=== PATIENT | male | born 1980 | race Caucasian/White ===

== ENCOUNTER 2018-08-10 13:28 | Emergency (ER) | payer SELFPAY ==
--- NOTE | 2018-08-10 16:35 | ED Physician Documentation ---
PD HPI HEADACHE - Stated complaint Stated Complaint: FACE PAIN - Chief complaint Chief Complaint: Neuro - History obtained from History obtained from: Patient - History of Present Illness Timing - onset: How many days ago (several) Timing - duration: Days Timing - details: Gradual onset, Still present (worse today, with icepick feeling left supraorbital area.) Worst headache ever?: Worst headache ever? (left frontal area) Location: Front, Left Quality: Stabbing (he says it feels like ice pick above the left eye.). No: Thunderclap, Like head is exploding Associated symptoms: Nausea. No: Fever, Stiff neck, Vomiting Improved by: Dark room. No: Rest Worsened by: Light, Noise Contributing factors: No: Recent illness, Trauma Similar symptoms before: Has not had sx before (has had migraine headaches at times, with visual changes/aura and then headache. This headache feels different. Also has had the sinus pressure and nasal congestion preceding it.) Review of Systems Constitutional: denies: Fever, Chills Eyes: reports: Photophobia. denies: Loss of vision, Decreased vision Nose: reports: Congestion, Sinus pressure / pain. denies: Rhinorrhea / runny nose Throat: denies: Sore throat Respiratory: denies: Cough GI: reports: Nausea. denies: Abdominal Pain, Vomiting, Diarrhea Skin: denies: Rash, Lesions PD PAST MEDICAL HISTORY - Past Medical History Cardiovascular: None Respiratory: None Neuro: Migraines Endocrine/Autoimmune: None - Present Medications Home Medications: Ambulatory Orders Medication Instructions Recorded Confirmed Dexamethasone [Decadron] 4 mg PO DAILY #5 tablet 08/10/18 Doxycycline Hyclate 100 mg PO BID #20 capsule 08/10/18 Hydrocodone/Acetaminophen [Perkins 1 each PO Q6H PRN #25 tablet 08/10/18 5-325 Tablet] Ondansetron Odt [Zofran] 4 mg TL Q6H PRN #20 tablet 08/10/18 - Allergies Allergies/Adverse Reactions: Allergies Allergy/AdvReac Type Severity Reaction Status Date / Time No Known Drug Allergies Allergy Verified 08/10/18 13:55 - Living Situation Living Situation: reports: With spouse/s.o. Living Arrangement: reports: At home (they have a planned vacation to [facility] for beach and snorkeling. Considering scuba diving. They leave in 7 days. ) PD ED PE NORMAL - Vitals Vital signs reviewed: Yes - General General: Alert and oriented X 3, No acute distress, Well developed/nourished - HEENT HEENT: PERRL (some light sensitive), EOMI (fundi appear normal), Ears normal, Pharynx benign - Neck Neck: Supple, no meningeal sign, No adenopathy - Cardiac Cardiac: RRR, No murmur - Respiratory Respiratory: Clear bilaterally - Abdomen Abdomen: Soft, Non tender - Derm Derm: Normal color, Warm and dry, No rash - Neuro Neuro: Alert and oriented X 3, it operations manager 2-12 intact, No motor deficit, No sensory deficit, Normal speech, Other Eye Opening: Spontaneous Motor: Obeys Commands Verbal: Oriented GCS Score: 15 Results - Vitals Vitals: Vital Signs - 24 hr 08/10/18 08/10/18 08/10/18 13:55 15:59 18:19 Temperature 36.5 C Heart Rate 77 77 65 Respiratory 16 18 17 Rate Blood Pressure 154/105 H 147/106 H 159/104 H O2 Saturation 100 100 100 Oxygen O2 Source Room air PD MEDICAL DECISION MAKING - ED course Complexity details: re-evaluated patient (His ice pick headache is improved with migraine type approach in meds. Still with sinus pressure feeling left frontal and periorbital.), considered differential (sounds like sinusitis and then also migraine (cluster variant by the sound of it). Discussion about imaging and shared decision to forego CT scan, with feeling most likely sinus and migraine. Will try meds first.), d/w patient Departure - Departure Disposition: 01 Home, Self Care Clinical Impression: Sinusitis, acute frontal Qualifiers: Recurrence: non-recurrent Qualified Code(s): J01.10 - Acute frontal sinusitis, unspecified Cluster headache Qualifiers: Headache chronicity pattern: unspecified pattern Intractability: not intractable Qualified Code(s): G44.009 - Cluster headache syndrome, unspecified, not intractable Condition: Stable Record reviewed to determine appropriate education?: Yes Instructions: ED Headache Migraine, ED Sinusitis Abx Tx Prescriptions: Dexamethasone [Decadron] 4 mg PO DAILY #5 tablet Doxycycline Hyclate 100 mg PO BID #20 capsule Hydrocodone/Acetaminophen [Perkins 5-325 Tablet] 1 each PO Q6H PRN #25 tablet PRN Reason: Pain Ondansetron Odt [Zofran] 4 mg TL Q6H PRN #20 tablet PRN Reason: Nausea / Vomiting Comments: Use doxycycline and Decadron for the sinus infection. He can continue with the saline nasal spray or cleansing of the nasal passages. Tylenol or ibuprofen if needed for mild pains. Your headache also sounds like there was a migraine component with the variation called cluster headache. See if there is any pattern to this or if it was just an episodic event. Use ondansetron if needed for nausea and Percocet if needed for worse pain. Return if severe again. Discharge Date/Time: 08/10/18 18:21
[2018-08-10] MEDS ORDERED: SODIUM CHLORIDE 0.9% 1,000 ML IV ONE (16:54)
[2018-08-10] MEDS ORDERED: KETOROLAC 30 MG/ML VIAL IVP STA (16:54)
[2018-08-10] MEDS ORDERED: diphenhydrAMINE INJ 50 MG/ML VIAL IVP STA (16:54)
[2018-08-10] MEDS ORDERED: METOCLOPRAMIDE 10 MG/2 ML VIAL IVP STA (16:54)
[2018-08-10] MEDS ORDERED: DEXAMETHASONE 10 MG/ML VIAL IVP STA (16:55)
[2018-08-10] MEDS ORDERED: MORPHINE 10 MG/ML VIAL IVP STA ×2 (16:55→17:53)
[2018-08-10] MEDS ORDERED: DOXYCYCLINE 100 MG TABLET PO STA (16:55)
[2018-08-10 18:19] VITALS: BP 159/104
== END 2018-08-10 18:21 | disposition home or self-care (01) ==
LOC: ED 13:28
DX: J01.10 Acute frontal sinusitis, unspecified (principal); G44.009 Cluster headache syndrome, unspecified, not intractable
CPT/HCPCS: 96374; 96375; 96376; 99283; A9270; J1200; J2765